=== PATIENT | male | born 1975 | race African-American/Black ===

== ENCOUNTER 2019-04-28 09:26 | Emergency (ER) | payer BC ==
[~2019-04-28] VITALS: Ht 177.8 cm; Wt 77.0 kg
[2019-04-28] MEDS ORDERED: KETOROLAC 30MG/ML VIAL IV STA (10:08)
[2019-04-28] MEDS ORDERED: CEFAZOLIN 1000MG PREMIX 50 ML IV ONE ×2 (10:45→18:30)
[2019-04-28] MEDS ORDERED: LIDOCAINE HCL/PF 1% 10 MG/ML 5ML VIAL IJ ONE (11:15)
[2019-04-28] MEDS ORDERED: ACETAMINOPHEN 325MG TABLET PO ONE (15:00)
[2019-04-28] MEDS ORDERED: ACETAMINOPHEN 500MG TABLET PO ONE (22:45)
[2019-04-29] MEDS ORDERED: CEFAZOLIN 1000MG PREMIX 50 ML IV ONE (06:00)
[2019-04-29] MEDS ORDERED: LIDOCAINE HCL/PF 1% 10 MG/ML 5ML VIAL IJ ONE (06:15)
[2019-04-29] MEDS ORDERED: KETOROLAC 30MG/ML VIAL IV STA (07:06)
[2019-04-29] MEDS ORDERED: HYDROCODONE/ACETAMINOPHEN 5/325MG TABLET PO ONE (09:15)
[2019-04-29] MEDS ORDERED: CEFAZOLIN 1000MG PREMIX 50 ML IV STA (12:08)
[2019-04-29 13:45] VITALS: BP 151/94
== END 2019-04-29 14:06 | disposition short-term general hospital (02) ==
LOC: ER 09:26
DX: S68.126A Partial traumatic metacarpophalangeal amputation of right little finger, initial encounter (principal); Z89.111 Acquired absence of right hand; Z88.5 Allergy status to narcotic agent; X58.XXXA Exposure to other specified factors, initial encounter; Y93.89 Activity, other specified; Y92.89 Other specified places as the place of occurrence of the external cause; Y99.8 Other external cause status
CPT/HCPCS: 73140; 96365; 96367; 96375; 96376; 99285; J0690; J1885; J3490